=== PATIENT | female | born 1990 | race African-American/Black ===

== ENCOUNTER 2017-01-10 20:00 | Emergency (ER) | payer OTHER ==
[~2017-01-10] VITALS: Ht 165.1 cm; Wt 71.7 kg
[2017-01-10 20:00] VITALS: BP 123/66
[~2017-01-10 20:00] MED LIST: CYCL5TAB PO; HYDR-79 PO
[2017-01-10] MEDS ORDERED: IV NORMAL SALINE 1,000ML 1,000 ML IV ONE (20:30)
--- NOTE | 2017-01-10 21:02 | PHYS DOC ---
Past History Past Medical History: Anxiety, Depression, Migraines, Other Past Surgical History: Alcohol Use: None Drug Use: None Adult General Chief Complaint Chief Complaint: MULTIPLE COMPLAINTS [facility] HPI Patient is a 26 year old F who presents with numbness in the right foot. Akhida states that 3 days ago she had an epidural for chronic back pain. Thereafter she has had numbness of her right leg and foot as well as unsteadiness on her right leg. She states that the numbness of the leg has improved however she continues to have tingling in the entire right foot including all toes. She states that she is able to walk but feels that she is limping. She also states that she has had heartburn since eating spaghetti and Thai. Review of Systems Review of Systems Constitutional: Denies fever or chills [] Eyes: Denies change in visual acuity, redness, or eye pain [] HENT: Denies nasal congestion or sore throat [] Respiratory: Denies cough or shortness of breath [] Cardiovascular: No additional information not addressed in HPI [] GI: Denies abdominal pain, nausea, vomiting, bloody stools or diarrhea [] : Denies dysuria or hematuria [] Musculoskeletal: Denies back pain or joint pain [] Integument: Denies rash or skin lesions [] Neurologic: Negative except history of present illness Endocrine: Denies polyuria or polydipsia [] Family History Family History Noncontributory Current Medications Current Medications Current Medications Medications (Trade) Dose Ordered Sig/Claudia Start Time Stop Time Status Last Admin Dose Admin Sodium Chloride 1,000 ml @ 1,000 mls/hr 1X ONCE 01/10/17 20:30 01/10/17 21:29 Allergies Allergies Allergies Coded Allergies Type Severity Reaction Last Updated Verified No Known Allergies Allergy Unknown 04/10/16 Yes Physical Exam Physical Exam Constitutional: Well developed, well nourished, no acute distress, non-toxic appearance. [] HENT: Normocephalic, atraumatic, bilateral external ears normal, oropharynx moist, no oral exudates, nose normal. [] Eyes: PERRLA, EOMI, conjunctiva normal, no discharge. [] Neck: Normal range of motion, no tenderness, supple, no stridor. [] Cardiovascular:Heart rate regular rhythm, no murmur [] Lungs & Thorax: Bilateral breath sounds clear to auscultation [] Abdomen: Bowel sounds normal, soft, no tenderness, no masses, no pulsatile masses. [] Skin: Warm, dry, no erythema, no rash. [] Back: No tenderness, no CVA tenderness. [] Extremities: No tenderness, no cyanosis, no clubbing, ROM intact, no edema. [] Neurologic: Alert and oriented X 3, normal motor function, normal sensory function, no focal deficits noted. Subjective sensation difference when comparing the right lower leg and foot of the left. Sensation is reported to be different both medially and laterally. She is able to feel all of physicians. Strength is 5 out of 5 in all tested areas with no difference compared to contralateral leg Psychologic: Affect normal, judgement normal, mood normal. [] Current Patient Data Vital Signs Please review nursing documentation EKG EKG [] Radiology/Procedures Radiology/Procedures [] Course & Med Decision Making Course & Med Decision Making Pertinent Labs and Imaging studies reviewed. (See chart for details) Symptoms not consistent with acute nerve injury. Dragon Disclaimer Dragon Disclaimer This chart was dictated in whole or in part using Voice Recognition software in a busy, high-work load, and often noisy Emergency Department environment. It may contain unintended and wholly unrecognized errors or omissions. Departure Departure: Impression: Primary Impression: Tingling Disposition: 01 HOME, SELF-CARE Condition: STABLE Referrals: PCP,UNKNOWN (PCP) Patient Instructions: Gastroesophageal Reflux Disease, Adult Additional Instructions: Osvaldo seen in the emergency room for problems with her right leg. No emergency medical condition was found on history or physical exam. She was advised to follow-up with the doctor who performed the epidural as soon as possible for further management. She was advised to return if she develops new or worsening symptoms ANJELICA DIAZ MD Jan 10, 2017 21:02
== END 2017-01-10 21:02 | disposition home or self-care (01) ==
LOC: ER 20:00
DX: R20.2 Paresthesia of skin (principal); R12 Heartburn; G89.29 Other chronic pain; G43.909 Migraine, unspecified, not intractable, without status migrainosus
CPT/HCPCS: 99281

== ENCOUNTER 2017-03-29 17:50 | Emergency (ER) | payer OTHER ==
[~2017-03-29] VITALS: Ht 162.6 cm; Wt 68.9 kg
[2017-03-29 19:30] VITALS: BP 113/70
[2017-03-29 19:39] LABS: INFLUENZA A PATIENT NEGATIVE (NEGATIVE); INFLUENZA B PATIENT NEGATIVE (NEGATIVE)
[2017-03-29] MEDS ORDERED: FLUT9.9S NS (19:43)
--- NOTE | 2017-03-29 19:44 | PHYS DOC ---
Past History Past Medical History: No Pertinent History, Other Past Surgical History: Alcohol Use: Occasionally Drug Use: None Adult General Chief Complaint Chief Complaint: HEADACHE HPI HPI Patient is a 26 year old F who presents with nasal congestion and sore throat and mild headache. She does have associated nonproductive cough. She states her symptoms have been constant with fluctuating intensity over the past 2-3 days. She denies fevers sweats chills or other associated symptoms. She denies any exacerbating or relieving factors. Review of Systems Review of Systems Constitutional: Denies fever or chills [] Eyes: Denies change in visual acuity, redness, or eye pain [] HENT: nasal congestion Respiratory: Denies cough or shortness of breath [] Cardiovascular: No additional information not addressed in HPI [] GI: Denies abdominal pain, nausea, vomiting, bloody stools or diarrhea [] : Denies dysuria or hematuria [] Musculoskeletal: Denies back pain or joint pain [] Integument: Denies rash or skin lesions [] Neurologic: Denies headache, focal weakness or sensory changes [] Endocrine: Denies polyuria or polydipsia [] Family History Family History Noncontributory Current Medications Current Medications Medications reviewed Allergies Allergies Allergies Coded Allergies Type Severity Reaction Last Updated Verified No Known Allergies Allergy Unknown 04/10/16 Yes Physical Exam Physical Exam Constitutional: Well developed, well nourished, no acute distress, non-toxic appearance. [] HENT: Normocephalic, atraumatic, bilateral external ears normal, moderate nasal congestion with mild to moderate edema and erythema and nares bilaterally, mild oral pharyngeal erythema Eyes: PERRLA, conjunctiva normal, no discharge. [] Neck: Normal range of motion, no tenderness, supple, no stridor. [] No lymphadenopathy Cardiovascular:Heart rate regular rhythm, no murmur [] Lungs & Thorax: Bilateral breath sounds clear to auscultation [] nonproductive cough noted Abdomen: Bowel sounds normal, soft, no tenderness, no masses, no pulsatile masses. [] Skin: Warm, dry, no erythema, no rash. [] Back: No tenderness, no CVA tenderness. [] Extremities: No tenderness, no cyanosis, no clubbing, ROM intact, no edema. [] Neurologic: Alert and oriented X 3, normal motor function, normal sensory function, no focal deficits noted. [] Psychologic: Affect normal, judgement normal, mood normal. [] Current Patient Data Vital Signs Vital Signs Date Time Temp Pulse Resp B/P (MAP) Pulse Ox O2 Delivery O2 Flow Rate FiO2 03/29/17 18:59 98.3 77 16 100 Room Air Lab Results Laboratory Tests Test 03/29/17 18:25 Group A Streptococcus Rapid Negative (NEGATIVE) EKG EKG [] Radiology/Procedures Radiology/Procedures [] Course & Med Decision Making Course & Med Decision Making Pertinent Labs and Imaging studies reviewed. (See chart for details) [] Dragon Disclaimer Dragon Disclaimer This chart was dictated in whole or in part using Voice Recognition software in a busy, high-work load, and often noisy Emergency Department environment. It may contain unintended and wholly unrecognized errors or omissions. Departure Departure: Impression: Primary Impression: Upper respiratory infection Disposition: HOME, SELF-CARE Condition: STABLE Referrals: NON,STAFF (PCP) Patient Instructions: Upper Respiratory Infection, Adult Additional Instructions: Osvaldo was seen in the ED for nasal congestion and sore throat. No emergency medical condition was found history or physical exam. She did have a negative strep and flu screen. Her symptoms are most consistent with a viral upper respiratory infection. She was advised to use nasal saline rinses regularly and was given a prescription for nasal steroids. She was advised follow-up with her primary care doctor as needed for further management. Scripts Fluticasone Propionate (Flonase Allergy Relief) 9.9 Ml [place].susp 1 SPRAYS NS BID for 7 Days, BOTTLE Prov: ANJELICA DIAZ MD 03/29/17 Problem Qualifiers Primary Impression: Upper respiratory infection URI type: unspecified viral URI Qualified Codes: J06.9 - Acute upper respiratory infection, unspecified; B97.89 - Other viral agents as the cause of diseases classified elsewhere ANJELICA DIAZ MD Mar 29, 2017 19:44
== END 2017-03-29 19:50 | disposition home or self-care (01) ==
LOC: ER 17:50
DX: J06.9 Acute upper respiratory infection, unspecified (principal); R51 Headache
CPT/HCPCS: 87070; 87804; 87880; 99284

== ENCOUNTER → 2017-04-16 | Outpatient (CLI) | payer OTHER ==
[2017-03-29 19:30] VITALS: BP 113/70
[~2017-04-16] MED LIST changes: +CEPH-264 PO; +FLUT9.9S NS; +IBUP600T16 PO
== END | disposition home or self-care (01) ==
LOC: SURG 13:58
PROVIDERS: ATTEND Anesthesiology
DX: M47.816 Spondylosis without myelopathy or radiculopathy, lumbar region (principal); F17.200 Nicotine dependence, unspecified, uncomplicated; Z72.89 Other problems related to lifestyle
CPT/HCPCS: 99214

== ENCOUNTER 2017-04-20 10:24 | Emergency (ER) | payer OTHER ==
[~2017-04-20 10:24] MED LIST changes: -CEPH-264 PO; -IBUP600T16 PO
[2017-04-20 10:30] VITALS: BP 120/76
[2017-04-20] MEDS ORDERED: LIDOCAINE WITH 8.4% SOD BICARB 3 ML DISP.SYRIN. IJ ONE ×2 (11:16→11:30)
--- NOTE | 2017-04-20 11:35 | PHYS DOC ---
Past History Past Medical History: No Pertinent History, Other Past Surgical History: Alcohol Use: Occasionally Drug Use: None Adult General Chief Complaint Chief Complaint: FOOT INJURY PAIN HPI HPI Patient is a 36-year-old female who presents today with a foreign body sensation to the plantar aspect of right foot. Patient reports that she had stepped on glass and had thought she removed all the glass prior. Patient now thinks that there might be a small piece of hair that might be lodged inside her foot for some reason. Patient has any other symptomatology. Patient tetanus status up-to-date. Patient is . Patient has any fevers shakes chills nausea vomiting or diarrhea. Review of systems: Constitutional: Denies fever or chills Eyes: Denies change in visual acuity, redness, or eye pain HENT: Denies nasal congestion or sore throat Respiratory: Denies cough or shortness of breath All other systems were reviewed and found to be within normal limits, except as documented in this note. Physical exam: Constitutional: Well developed, well nourished, no acute distress, non-toxic appearance. HENT: Normocephalic, atraumatic, bilateral external ears normal, nose normal. Eyes: PERRLA, EOMI, conjunctiva normal, no discharge. Neck: Normal range of motion, no tenderness, supple, no stridor. Cardiovascular: Heart rate regular rhythm, Lungs & Thorax: Bilateral breath sounds clear to auscultation Abdomen: No abdominal distention. Skin: Warm, dry, no erythema, no rash. Back: Normal spinal curvature Extremities: No tenderness, no cyanosis, no clubbing, ROM intact, no edema. Neurologic: Alert and oriented X 3, normal motor function, normal sensory function, no focal deficits noted. Psychologic: Affect normal, judgement normal, mood normal. Patient's ER physical exam was most unremarkable: Patient would not allow me to evaluate her foot secondary to discomfort. Patient did request I give her an injection of lidocaine the site secondary evaluate her foot without pain. Procedure: 1 mL of buffered lidocaine infiltrated into the area of question to the plantar aspect of the right foot. After anesthesia was obtained I was able palpate a hard callus-like sensation to the plantar aspect of her foot. Using blunt dissection and forceps I was able to debride the hard tissue. I was unable to identify any foreign body although there might be a small piece of glass or foreign body at that area that I have debrided. I discussed with the patient the risk of infection as well as the plan to allow her to heal by secondary intent and hopefully there is a foreign body in body will push it out on its own. We will send her home on Keflex. Foot x-ray as interpreted by ER physician reveals: No foreign body identified. Assessment and plan: 1. Foreign body sensation to plantar aspect of foot. No evidence of cellulitis or infection. Patient be discharged home on Keflex with instructions to follow- up with her primary care physician 1-2 days for wound check. Current Medications Current Medications Current Medications Medications (Trade) Dose Ordered Sig/Claudia Start Time Stop Time Status Last Admin Dose Admin Lidocaine/Sodium Bicarbonate (Buffered Lidocaine 1%) 3 ml 1X ONCE 04/20/17 11:30 04/20/17 11:31 DC 04/20/17 11:00 3 ML Allergies Allergies Allergies Coded Allergies Type Severity Reaction Last Updated Verified No Known Allergies Allergy Unknown 04/10/16 Yes Physical Exam Physical Exam Constitutional: Well developed, well nourished, no acute distress, non-toxic appearance. [] HENT: Normocephalic, atraumatic, bilateral external ears normal, oropharynx moist, no oral exudates, nose normal. [] Eyes: PERRLA, EOMI, conjunctiva normal, no discharge. [] Neck: Normal range of motion, no tenderness, supple, no stridor. [] Cardiovascular:Heart rate regular rhythm, no murmur [] Lungs & Thorax: Bilateral breath sounds clear to auscultation [] Abdomen: Bowel sounds normal, soft, no tenderness, no masses, no pulsatile masses. [] Skin: Warm, dry, no erythema, no rash. [] Back: No tenderness, no CVA tenderness. [] Extremities: No tenderness, no cyanosis, no clubbing, ROM intact, no edema. [] Neurologic: Alert and oriented X 3, normal motor function, normal sensory function, no focal deficits noted. [] Psychologic: Affect normal, judgement normal, mood normal. [] EKG EKG [] Radiology/Procedures Radiology/Procedures [] Course & Med Decision Making Course & Med Decision Making Pertinent Labs and Imaging studies reviewed. (See chart for details) [] Dragon Disclaimer Dragon Disclaimer This electronic medical record was generated, in whole or in part, using a voice recognition dictation system. Departure Departure: Impression: Primary Impression: Foreign body foot/toe Disposition: HOME, SELF-CARE Condition: STABLE Referrals: EDUARDA ORANTES (PCP) Patient Instructions: Wound Care, [id number] Scripts Cephalexin (KEFLEX) 500 Mg Capsule 1 CAP PO TID, #30 CAP Prov: SANDOR CRYSTAL MD 04/20/17 Ibuprofen (IBUPROFEN) 600 Mg Tablet 600 MG PO QID Y for PAIN, #20 Prov: SANDOR CRYSTAL MD 04/20/17 SANDOR CRYSTAL MD Apr 20, 2017 11:35
--- NOTE | 2017-04-20 11:54 | RAD ---
FOOT RIGHT 2V History:Stepped on glass, pain Comparison: None Findings:3 views of the right foot are submitted. Site of bleeding is not indicated. No acute fracture is identified. No definite radiopaque foreign body is identified. Impression: 1.No acute abnormality is identified.
[2017-04-20] MEDS ORDERED: IBUP600T16 PO (11:55)
[2017-04-20] MEDS ORDERED: CEPH-264 PO (11:55)
[2017-04-20] MEDS ORDERED: CEPHALEXIN 250 MG CAPSULE PO ONE (12:00)
== END 2017-04-20 12:00 | disposition home or self-care (01) ==
LOC: ER 10:24
DX: S90.851A Superficial foreign body, right foot, initial encounter (principal); W25.XXXA Contact with sharp glass, initial encounter; Y93.89 Activity, other specified; Y99.8 Other external cause status; Y92.89 Other specified places as the place of occurrence of the external cause
CPT/HCPCS: 10120; 73620; 99284-25

== ENCOUNTER → 2017-06-07 | Outpatient (CLI) | payer OTHER ==
[~2017-06-07] MED LIST changes: +0.9 % SODIUM CHLORIDE 10 ML VIAL ONE; +BUPIVACAINE MPF 0.5% 30 ML VIAL. ONE; +CEPH-264 PO; +IBUP600T16 PO; +LIDOCAINE 1% PF 30 ML VIAL. ONE
== END | disposition home or self-care (01) ==
LOC: SURG 12:04
PROVIDERS: ATTEND Anesthesiology Pain Medicine
DX: M47.816 Spondylosis without myelopathy or radiculopathy, lumbar region (principal); Z72.89 Other problems related to lifestyle; Z98.890 Other specified postprocedural states
CPT/HCPCS: 64493; 64494; J2001; J3490

== ENCOUNTER 2017-06-21 14:48 | Emergency (ER) | payer OTHER ==
[~2017-06-21] VITALS: Ht 162.6 cm; Wt 68.5 kg
[2017-06-21 14:48] VITALS: BP 102/62
[~2017-06-21 14:48] MED LIST changes: -0.9 % SODIUM CHLORIDE 10 ML VIAL ONE; -BUPIVACAINE MPF 0.5% 30 ML VIAL. ONE; -LIDOCAINE 1% PF 30 ML VIAL. ONE
== END 2017-06-21 16:05 | disposition left against medical advice (07) ==
LOC: ER 14:48
DX: R51 Headache (principal); N91.2 Amenorrhea, unspecified; Z53.21 Procedure and treatment not carried out due to patient leaving prior to being seen by health care provider
CPT/HCPCS: 81025; 99281

== ENCOUNTER → 2017-07-05 | Outpatient (CLI) | payer OTHER ==
[2017-06-21 14:48] VITALS: BP 102/62
== END | disposition home or self-care (01) ==
LOC: SURG 12:46
PROVIDERS: ATTEND Anesthesiology Pain Medicine
DX: M47.816 Spondylosis without myelopathy or radiculopathy, lumbar region (principal)
CPT/HCPCS: 99213

== ENCOUNTER → 2017-07-26 | Outpatient (CLI) | payer OTHER ==
[~2017-07-26] MED LIST changes: +BUPIVACAINE MPF 0.5% 30 ML VIAL. ONE; +LIDOCAINE 1% PF 30 ML VIAL. ONE
== END | disposition home or self-care (01) ==
LOC: SURG 13:26
PROVIDERS: ATTEND Anesthesiology Pain Medicine
DX: M47.816 Spondylosis without myelopathy or radiculopathy, lumbar region (principal); M54.5 Low back pain; Z98.890 Other specified postprocedural states
CPT/HCPCS: 64493; 64494; J2001; J3490

== ENCOUNTER 2017-08-21 14:32 | Emergency (ER) | payer OTHER ==
[~2017-08-21] VITALS: Ht 165.1 cm; Wt 73.8 kg
[~2017-08-21 14:32] MED LIST changes: -BUPIVACAINE MPF 0.5% 30 ML VIAL. ONE; -LIDOCAINE 1% PF 30 ML VIAL. ONE
[2017-08-21 14:40] VITALS: BP 112/63
[2017-08-21] MEDS ORDERED: AMOX500C PO (15:05)
--- NOTE | 2017-08-21 15:06 | PHYS DOC ---
Past History Past Medical History: Anxiety, Other Past Surgical History: , Other Additional Smoking Information: Pt reports she quit smoking 3 days ago Alcohol Use: Occasionally Drug Use: None Adult General Chief Complaint Chief Complaint: SORE THROAT HPI HPI Patient is a 26 year old F who presents with sore throat. Butch describes associated ear pain, nasal congestion and drainage. She denies exacerbating or alleviating factors. She denies any other associated symptoms at this time. Review of Systems Review of Systems Constitutional: Denies fever or chills [] Eyes: Denies change in visual acuity, redness, or eye pain [] HENT: Negative except history of present illness Respiratory: Denies cough or shortness of breath [] Cardiovascular: No additional information not addressed in HPI [] GI: Denies abdominal pain, nausea, vomiting, bloody stools or diarrhea [] : Denies dysuria or hematuria [] Musculoskeletal: Denies back pain or joint pain [] Integument: Denies rash or skin lesions [] Neurologic: Denies headache, focal weakness or sensory changes [] Endocrine: Denies polyuria or polydipsia [] All other systems were reviewed and found to be within normal limits, except as documented in this note. Family History Family History No pertinent medical history was reported Current Medications Current Medications Current medications reviewed Allergies Allergies Allergies Coded Allergies Type Severity Reaction Last Updated Verified No Known Allergies Allergy Unknown 04/10/16 Yes Physical Exam Physical Exam Constitutional: Well developed, well nourished, no acute distress, non-toxic appearance. [] HENT: Normocephalic, atraumatic, mild nasal mucosa erythema and edema bilaterally, posterior pharyngeal edema and erythema Eyes: P EOMI, conjunctiva normal, no discharge. [] Neck: Normal range of motion, no tenderness, supple, no stridor. [] Cardiovascular:Heart rate regular rhythm, Lungs & Thorax: Bilateral breath sounds clear to auscultation [] Abdomen: Bowel sounds normal, soft, no tenderness, no masses, no pulsatile masses. [] Skin: Warm, dry, no erythema, no rash. Neurologic: Alert and oriented X 3, normal motor function, normal sensory function, no focal deficits noted. [] Psychologic: Affect normal, judgement normal, mood normal. [] Current Patient Data Vital Signs Vital Signs Date Time Temp Pulse Resp B/P (MAP) Pulse Ox O2 Delivery O2 Flow Rate FiO2 3/28/18 14:40 98.6 91 16 98 Room Air Lab Results Positive strep screen EKG EKG [] Radiology/Procedures Radiology/Procedures [] Course & Med Decision Making Course & Med Decision Making Pertinent Labs and Imaging studies reviewed. (See chart for details) [] Dragon Disclaimer Dragon Disclaimer This electronic medical record was generated, in whole or in part, using a voice recognition dictation system. Departure Departure: Impression: Primary Impression: Strep pharyngitis Disposition: HOME, SELF-CARE Condition: STABLE Referrals: CHELA MARTINEZ (PCP) Patient Instructions: Strep Throat Additional Instructions: Butch was seen in the emergency department for sore throat. No emergency medical condition was found on history or physical exam. She was found to have symptoms consistent with strep throat which was confirmed on a strep screen. She was started on antibiotics and advised follow-up with her primary care doctor as needed for further management. She is also advised to return to the emergency room if she develops or worsening symptoms. Scripts Amoxicillin (AMOXICILLIN) 500 Mg Capsule 1 CAP PO TID for 7 Days, #21 CAP Prov: ANJELICA DIAZ MD 08/21/17 ANJELICA DIAZ MD Aug 21, 2017 15:06
[2017-08-21] MEDS ORDERED: AMOXICILLIN 250 MG CAPSULE PO ONE ×2 (15:15→15:30)
== END 2017-08-21 15:15 | disposition home or self-care (01) ==
LOC: ER 14:32
DX: J02.0 Streptococcal pharyngitis (principal); H92.03 Otalgia, bilateral; F41.9 Anxiety disorder, unspecified; Z87.891 Personal history of nicotine dependence
CPT/HCPCS: 87880; 99283

== ENCOUNTER 2017-08-25 20:30 | Emergency (ER) | payer OTHER ==
[~2017-08-25] VITALS: Ht 165.1 cm; Wt 73.8 kg
[~2017-08-25 20:30] MED LIST changes: +AMOX500C PO
[2017-08-25] MEDS ORDERED: SUCR1ORA5 PO (20:59)
[2017-08-25] MEDS ORDERED: SUCRALFATE 1 GM TABLET. PO ONE (21:00)
--- NOTE | 2017-08-25 21:00 | PHYS DOC ---
Past History Past Medical History: Anxiety, Other Past Surgical History: , Other Alcohol Use: Occasionally Drug Use: None Adult General Chief Complaint Chief Complaint: ABDOMINAL PAIN HPI HPI Patient is a 36-year-old female recently diagnosed with strep throat and prescribed antibiotics but she has not been taking them because of an upset stomach. Patient states she's been taking a lot of ibuprofen to control her sore throat and believes that is affecting her stomach and giving her cramps. Patient states she has a history of ulcers. Patient denies any fevers, chills, rashes, vomiting, diarrhea, dysuria, vaginal discharge. Patient does have a PCP to follow-up with. Review of Systems Review of Systems Constitutional: Denies fever or chills [] HENT: Yes to sore throat. Respiratory: Denies cough or shortness of breath [] Cardiovascular: No chest pain GI: Upset stoma, abdominal cramps. No vomiting, no diarrhea. Yes to nausea : Denies dysuria or hematuria or vaginal discharge Musculoskeletal: Denies back pain or joint pain [] Integument: Denies rash or skin lesions [] Neurologic: Denies headache, focal weakness or sensory changes [] All other systems were reviewed and found to be within normal limits, except as documented in this note. Allergies Allergies Allergies Coded Allergies Type Severity Reaction Last Updated Verified No Known Allergies Allergy Unknown 04/10/16 Yes Physical Exam Physical Exam Constitutional: Well developed, well nourished, no acute distress, non-toxic appearance. [] HENT: Normocephalic, atraumatic, bilateral external ears normal, oropharynx moist with mild erythema, airways patent, no masses, no oral exudates, nose normal. [] Eyes: EOMI, conjunctiva normal, no discharge. [] Neck: Normal range of motion, trachea midline, no stridor. [] Cardiovascular:Heart rate regular rhythm, no murmur, equal pulses, normal perfusion, heart rate 93 Lungs & Thorax: Bilateral breath sounds clear to auscultation, no tachypnea Abdomen: Bowel sounds normal, soft, mild diffuse tenderness without guarding or rebound, no masses, no pulsatile masses. [] Skin: Warm, dry, no erythema, no rash. [] Back: No range of motion Extremities: No tenderness, no DVT, ROM intact, no edema. [] Neurologic: Alert and oriented X 3, normal motor function, ambulates in the ED with normal gait and without assistance, no focal deficits noted. [] Psychologic: Affect normal, judgement normal, mood normal. [] EKG EKG [] Radiology/Procedures Radiology/Procedures Patient looks very well, nontoxic, not ill-appearing. Physical exam is unremarkable other than very mild tenderness to palpation in the abdomen but there are no signs of a surgical abdomen. I do not believe the patient is in need for additional labs or imaging given her benign exam and had unremarkable vital signs. Patient has follow-up and patient has been advised to get rechecked and reevaluated. Patient agrees to follow-up as directed.[] Course & Med Decision Making Course & Med Decision Making Pertinent Labs and Imaging studies reviewed. (See chart for details) Had discussion with the patient regarding not taking 800 mg of ibuprofen, if she needs to take his she can take 400 every 8 hours. Unremarkable i-STAT, unremarkable urine, patient is not . [] Dragon Disclaimer Dragon Disclaimer This electronic medical record was generated, in whole or in part, using a voice recognition dictation system. Departure Departure: Impression: Primary Impression: Abdominal pain Additional Impression: Sore throat Disposition: HOME, SELF-CARE Condition: STABLE Referrals: CHELA MARTINEZ (PCP) Please follow-up with your doctor for recheck and reevaluation in one to 2 days Patient Instructions: Abdominal Pain (Nonspecific), Drug Reaction, GI Intolerance, Sore Throat Scripts Sucralfate (CARAFATE) 1 Gm/10 Ml [place].susp 10 ML PO BID, #120 ML 1 Refill Prov: Luis Enrique GIVENS MD 08/25/17 Problem Qualifiers Luis Enrique GIVENS MD Aug 25, 2017 21:00
[2017-08-25 21:08] VITALS: BP 110/65
[2017-08-25 21:21] LABS: HEMOGLOBIN ISTAT 10.5 gm/dL
[2017-08-25 21:25] LABS: BACTERIA,URINE 0 /HPF (0-FEW); BILIRUBIN,URINE NEG (NEG); CLARITY,URINE CLEAR; COLOR,URINE YELLOW; GLUCOSE,URINE NEG (NEG); NITRITE,URINE NEG (NEG); RBC,URINE OCC /HPF (0-2); SQUAMOUS EPITHELIAL CELL,UR OCC /LPF; UROBILINOGEN,URINE 0.2 mg/dL (0.2 mg/dL); WBC,URINE OCC /HPF (0-4)
[2017-08-25 21:26] LABS: U PREG PATIENT NEGATIVE (NEG)
== END 2017-08-25 21:48 | disposition home or self-care (01) ==
LOC: ER 20:30
DX: J02.9 Acute pharyngitis, unspecified (principal); R10.84 Generalized abdominal pain; F41.9 Anxiety disorder, unspecified; Z98.890 Other specified postprocedural states
CPT/HCPCS: 36415; 80047; 81001; 81025; 85014; 85018; 99284

== ENCOUNTER 2017-10-23 07:11 | Emergency (ER) | payer OTHER ==
[~2017-10-23] VITALS: Ht 165.1 cm; Wt 73.5 kg
[~2017-10-23 07:11] MED LIST changes: +SUCR1ORA5 PO
[2017-10-23] MEDS ORDERED: METOCLOPRAMIDE HCL 10 MG/2 ML VIAL. IV ONE (07:45)
[2017-10-23] MEDS ORDERED: diphenhydrAMINE 50 MG/ML VIAL IVP ONE (07:45)
[2017-10-23] MEDS ORDERED: IV NORMAL SALINE 1,000ML 1,000 ML IV ONE (07:45)
--- NOTE | 2017-10-23 07:51 | PHYS DOC ---
Past History Past Medical History: Anxiety, GERD, Ovarian Cyst, Other Past Surgical History: , Other Alcohol Use: Occasionally Drug Use: None Adult General Chief Complaint Chief Complaint: HEADACHE HPI HPI 26-year-old female with a history of headaches presents the emergency department with a headache similar to previous. She describes it is slow in onset and not thunderclap. She denies any vision changes. She has had nausea with the headache. The headache is a sharp shooting moderate pain that is nonradiating intermittent. Not alleviated by Tylenol [id number]. Past medical history: History of headaches Past surgical history: 2 C-sections Social history: Denies smoking or IV drug use. Allergies no known drug allergies. Review of systems is negative for neck stiffness numbness, weakness or tingling of the upper or lower extremities, she denies slurred speech difficulty speaking fevers chills. All other review of systems is negative unless otherwise noted in history of present illness. ED course: 26-year-old female presenting the emergency department today with headache similar to previous headaches. Vitals. On exam she is well-appearing and nontoxic. Normal range of motion of the neck. Normal neurologic exam. Otherwise unremarkable. IV fluids, metoclopramide and diphenhydramine for treatment of the patient's headache. Urine test is positive. Patient denies abdominal pain or vaginal bleeding. She states she had a recent miscarriage and believes that this is why is positive. I recommend she follow up with a repeat test in 7 days or follow-up with her doctor in 7 days. She could return to the emergency department if she develops abdominal pain or vaginal bleeding. On reexamination, she is feeling better and was subsequent discharged home.The patient has been examined and was not found to have an emergency medical condition. The patient was then discharged home in stable condition to follow up with their primary care physician over the next 2- 3 days. They were to return if their symptoms worsened or if they were concerned for any reason. [id number] discharge instructions and return precautions were given. Patient's questions were answered to their satisfaction. Patient is comfortable with plan. Review of Systems Review of Systems SEE ABOVE. Current Medications Current Medications Current Medications Medications (Trade) Dose Ordered Sig/Claudia Start Time Stop Time Status Last Admin Dose Admin Diphenhydramine HCl (Benadryl) 25 mg 1X ONCE 10/23/17 07:45 10/23/17 07:46 Metoclopramide HCl (Reglan Vial) 10 mg 1X ONCE 10/23/17 07:45 10/23/17 07:46 Sodium Chloride 1,000 ml @ 1,000 mls/hr 1X ONCE 10/23/17 07:45 10/23/17 08:44 Allergies Allergies Allergies Coded Allergies Type Severity Reaction Last Updated Verified No Known Allergies Allergy Unknown 04/10/16 Yes Physical Exam Physical Exam SEE ABOVE Constitutional: Well developed, well nourished, no acute distress, non-toxic appearance. [] HENT: Normocephalic, atraumatic, bilateral external ears normal, oropharynx moist, no oral exudates, nose normal. [] Eyes: PERRLA, EOMI, conjunctiva normal, no discharge. [] Neck: Normal range of motion, no tenderness, supple, no stridor. [] Cardiovascular:Heart rate regular rhythm, no murmur [] Lungs & Thorax: Bilateral breath sounds clear to auscultation [] Abdomen: Bowel sounds normal, soft, no tenderness, no masses, no pulsatile masses. [] Skin: Warm, dry, no erythema, no rash. [] Back: No tenderness, no CVA tenderness. [] Extremities: No tenderness, no cyanosis, no clubbing, ROM intact, no edema. [] Neurologic: Mental status: Awake oriented and alert x3 Cranial nerves: Extraocular movements intact, eyebrows nisreen bilaterally, smile symmetric, uvula elevation nl, shoulder shrug intact bilaterally, tongue protrusion normal DTRs: 2+ in the knees Sensation: equal and normal in all extremities Strength: 5/5 in upper and lower extremities bilaterally Psychologic: Affect normal, judgement normal, mood normal. [] EKG EKG [] Radiology/Procedures Radiology/Procedures [] Course & Med Decision Making Course & Med Decision Making Pertinent Labs and Imaging studies reviewed. (See chart for details) [] Dragon Disclaimer Dragon Disclaimer This electronic medical record was generated, in whole or in part, using a voice recognition dictation system. Departure Departure: Impression: Primary Impression: Headache Disposition: HOME, SELF-CARE Condition: STABLE Referrals: PCP,UNKNOWN (PCP) Patient Instructions: General Headache Without Cause Additional Instructions: Thank you for allowing us to participate in your care today. Followup with your primary care physician in 3 days if your symptoms do not improve. Call your Primary Doctor tomorrow and inform them of your visit today. If you do not have a primary care provider you can ask for a list of our primary care providers. Return to the emergency department you have any new or concerning findings. This should be evaluated by the primary care physician and any necessary consulting services for continued management within a few days after discharge. Return to emergency room if you have any new or concerning symptoms including but not limited to fever, chills, nausea, vomiting, intractable pain, any new rashes, chest pain, shortness of air, uncontrolled bleeding, difficulty breathing, and/or vision loss. If at any time, you are having difficulty getting into your primary care doctor or a specialist, return to the emergency department. CHARO LAUREANO MD October 23, 2017 07:51
[2017-10-23 08:45] VITALS: BP 112/54
== END 2017-10-23 09:00 | disposition home or self-care (01) ==
LOC: ER 07:11
DX: R51 Headache (principal); F41.9 Anxiety disorder, unspecified; K21.9 Gastro-esophageal reflux disease without esophagitis
CPT/HCPCS: 81025; 96374; 96375; 99284; J1200; J2765; J7030

== ENCOUNTER 2018-08-14 18:55 | Emergency (ER) | payer OTHER ==
[~2018-08-14] VITALS: Ht 165.1 cm; Wt 73.4 kg
[~2018-08-14 18:55] MED LIST changes: +HYDR-1179 PO; -HYDR-79 PO
[2018-08-14] MEDS ORDERED: xanax (19:18)
[2018-08-14] MEDS ORDERED: FLUC100T7 PO (19:38)
--- NOTE | 2018-08-14 19:41 | ED.ADGEN ---
Past History Past Medical History: Anxiety, GERD, Ovarian Cyst, Other Past Surgical History: , Other Alcohol Use: Occasionally Drug Use: None Adult General Chief Complaint Chief Complaint 27 years old female with vaginal discharge HPI HPI 27 years old female presented to the emergency department with a white cheesy- looking discharge started a week ago no fever no chills no urgency no frequency Review of Systems Review of Systems Constitutional: Denies fever or chills [] Eyes: Denies change in visual acuity, redness, or eye pain [] HENT: Denies nasal congestion or sore throat [] Respiratory: Denies cough or shortness of breath [] Cardiovascular: No additional information not addressed in HPI [] GI: Denies abdominal pain, nausea, vomiting, bloody stools or diarrhea [] : Denies dysuria or hematuria [] Allergies Allergies Allergies Coded Allergies Type Severity Reaction Last Updated Verified No Known Allergies Allergy Unknown 08/14/18 Yes Physical Exam Physical Exam Constitutional: Well developed, well nourished, no acute distress, non-toxic appearance. [] HENT: Normocephalic, atraumatic, bilateral external ears normal, oropharynx moist, no oral exudates, nose normal. [] Eyes: PERRLA, EOMI, conjunctiva normal, no discharge. [] Neck: Normal range of motion, no tenderness, supple, no stridor. [] Cardiovascular:Heart rate regular rhythm, no murmur [] Lungs & Thorax: Bilateral breath sounds clear to auscultation [] Abdomen: Bowel sounds normal, soft, no tenderness, no masses, no pulsatile masses. [] Pelvic exam showed white discharged no active bleeding service closed EKG EKG [] Radiology/Procedures Radiology/Procedures [] Course & Med Decision Making Course & Med Decision Making Pertinent Labs and Imaging studies reviewed. (See chart for details) [] Final Impression Final Impression [] Problems: (1) Karen infection of genital region Dragon Disclaimer Dragon Disclaimer This electronic medical record was generated, in whole or in part, using a voice recognition dictation system. ESTEBAN KIDD MD Aug 14, 2018 19:41
[2018-08-14 19:45] VITALS: BP 124/66
[2018-08-18 15:07] LABS: CHLAMYDIA PROBE Negative (Negative)
== END 2018-08-14 19:46 | disposition home or self-care (01) ==
LOC: ER 18:55
DX: B37.49 Other urogenital candidiasis (principal); F41.9 Anxiety disorder, unspecified; K21.9 Gastro-esophageal reflux disease without esophagitis; Z98.890 Other specified postprocedural states
CPT/HCPCS: 36415; 87480; 87491; 87510; 87591; 87660; 99283